=== PATIENT | male | born 1980 | race American Indian/Alaskan Native ===

== ENCOUNTER 2016-07-30 16:24 | Emergency (ER) | payer SELFPAY ==
[2016-07-30] MEDS ORDERED: TYLENOL PO ONE (21:35)
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
[2016-07-30] MEDS ORDERED: MOTRIN PO ONE (22:50)
[2016-07-30 23:53] VITALS: BP 136/88
--- NOTE | 2016-07-31 08:37 | XRay Report ---
RIGHT HAND, 3 VIEWS History: Right hand pain injury. Findings: A comminuted, mildly impacted fracture of the fifth metacarpal neck is identified. There is a least 25 degrees anterior angulation at the fracture site. No calcified callus is appreciated. The remaining bony structures and joint spaces are within normal limits. There is moderate soft tissue swelling. Impression: Fifth metacarpal neck fracture as described. Consider consultation with orthopedics.
== END 2016-07-30 23:35 | disposition home or self-care (01) ==
LOC: ED 16:24
DX: S62.609A Fracture of unspecified phalanx of unspecified finger, initial encounter for closed fracture (principal); I10 Essential (primary) hypertension; Y08.89XA Assault by other specified means, initial encounter; Y93.89 Activity, other specified; Y92.89 Other specified places as the place of occurrence of the external cause; Y99.8 Other external cause status

== ENCOUNTER 2017-03-05 15:52 | Emergency (ER) | payer OTHER ==
[2017-03-05 16:09] VITALS: BP 122/81
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
--- NOTE | 2017-03-05 20:29 | Cat Scan Report ---
FINAL REPORT PROCEDURE: CT HEAD/BRAIN WO CON TECHNIQUE: Computerized tomography of the head was performed without contrast material. HISTORY: head lac/pain COMPARISON: No prior studies are available for comparison. FINDINGS: Trace mucosal thickening is seen in the paranasal sinuses. Mastoid air cells appear clear. Normal variant non fusion of the posterior ring of C1 is seen. No calvarial fracture is seen. Cerebral ventricles are normal in size. No acute intracranial hemorrhage or mass effect is seen. No CVA is seen. IMPRESSION: No calvarial fracture or acute intracranial hemorrhage is seen.
[2017-03-05] MEDS ORDERED: MOTRIN PO ONE (21:21)
== END 2017-03-05 22:05 | disposition home or self-care (01) ==
LOC: ED 15:52
DX: S62.392A Other fracture of third metacarpal bone, right hand, initial encounter for closed fracture (principal); S00.81XA Abrasion of other part of head, initial encounter; I10 Essential (primary) hypertension; Z87.891 Personal history of nicotine dependence; Y09 Assault by unspecified means; Y93.9 Activity, unspecified; Y99.9 Unspecified external cause status; Y92.89 Other specified places as the place of occurrence of the external cause
CPT/HCPCS: 70450; 99285